=== PATIENT | male | born 1950 | race Caucasian/White ===

== ENCOUNTER 2016-06-30 09:10 | Day surgery (SDC) | payer MEDICARE, BC ==
[~2016-06-30] VITALS: Ht 177.8 cm; Wt 95.5 kg
[2016-06-30] VITALS (9 sets, daily range): BP systolic 136–156; BP diastolic 71–85; PULSE 45–61; TEMP 97.9
[~2016-06-30 09:10] MED LIST: BILBERRY EXTRAC80 MG; CARDIZEM 30MG T30 MG PO; ELIQUIS 5MG PO; FERROUS SULFATE65 MG PO; HCTZ 25MG TAB25 MG PO; LANOXIN 0.120.125 MG PO; LUTEIN6 MG; MOTRIN 400400 MG/TAB PO; MULTAQ400 MG PO; MULTIPLE VITAMI1 CAP PO; NIACOR500 MG; OSCAL 500 TAB500 MG PO; PRILOSEC 20MG20 MG PO
[2016-06-30 09:44] LABS: MEAN CELL VOLUME 92 fl (80.0-100.0); MEAN CORPUSCULAR HGB CONC 34 g/dl (33.0-37.0); MEAN PLATELET VOLUME 9.3 fl (7.4-10.4); PLATELET COUNT 168 K/mm3 (130-400); RED BLOOD COUNT 3.55 M/mm3 (4.20-5.60); REDCELL DISTRIBUTION WIDTH-CV 15.8 % (11.5-14.5); WHITE BLOOD COUNT 5.1 K/mm3 (4.8-10.8)
[2016-06-30 09:46] LABS: HEMATOCRIT 32.8 % (42.0-52.0); HEMOGLOBIN 11.2 g/dl (13.5-18.0); MEAN CORPUSCULAR HEMOGLOBIN 32 pg (27.0-31.0)
[2016-06-30 09:50] LABS: INR 1.1 (0.8-3.0); PROTHROMBIN TIME 11.7 SECONDS (9.7-12.8)
[2016-06-30] MEDS ORDERED: CALCIUM 600MG+D1 TAB PO (09:54)
[2016-06-30] MEDS ORDERED: BILBERRY EXTRAC80 MG PO (09:55)
[2016-06-30] MEDS ORDERED: CARTIA XT120 MG PO (09:57)
[2016-06-30] MEDS ORDERED: TAMBOCOR 1100 MG/TAB PO (09:57)
[2016-06-30 10:23] LABS: CALCIUM 9.3 mg/dL (8.4-10.2); CREATININE, serum 0.83 mg/dL (0.66-1.25); POTASSIUM 3.5 mmol/L (3.4-5.0)
== END 2016-06-30 18:15 | disposition home or self-care (01) ==
LOC: COL.RAD 09:10
PROVIDERS: Internal Medicine Interventional Cardiology
DX: I48.91 Unspecified atrial fibrillation (principal); R55 Syncope and collapse; R94.39 Abnormal result of other cardiovascular function study; R00.2 Palpitations; I10 Essential (primary) hypertension
CPT/HCPCS: C1760; C1764; C1894; J2250; J3010; Q9967